=== PATIENT | male | born 1985 | race Caucasian/White ===

== ENCOUNTER 2016-09-05 06:47 | Emergency (ER) | payer SELFPAY ==
[~2016-09-05] VITALS: Ht 165.1 cm; Wt 70.3 kg
--- NOTE | 2016-09-05 06:47 | NUR ---
PT BIB [facility], PREBOOK. TAKEN TO OF
[2016-09-05 06:51] VITALS: BP 143/85
--- NOTE | 2016-09-05 06:56 | NUR ---
PATIENT PRESENTS TO ED WITH PRE BOOK WITH [facility]. . PT DENIES N/V/D; SKIN IS PINK/WARM/DRY; AAOX4 WITH EVEN AND STEADY GAIT; LUNGS CLEAR BL; HR EVEN AND REGULAR; PT DENIES ANY FEVER, CP, SOB, OR COUGH AT THIS TIME; PATIENT STATES PAIN OF 0/10 AT THIS TIME; VSS; PATIENT POSITIONED FOR COMFORT; HOB ELEVATED; BEDRAILS UP X2; BED DOWN. ER MD MADE AWARE OF PT STATUS.
--- NOTE | 2016-09-05 07:03 | NUR ---
Jaret barahona in [facility] - 09/05/16 at [address] Ruano evaluating patient at bedside.
--- NOTE | 2016-09-05 07:03 | NUR ---
Dr. Ruano evaluating patient
[2016-09-05 07:28] VITALS: BP 143/85
--- NOTE | 2016-09-05 07:29 | NUR ---
Patient discharged with v/s stable. Written and verbal after care instructions given and explained. Patient verbalized understanding. Police with in custody. All questions addressed prior to discharge. Advised to follow up with PMD.
== END 2016-09-05 07:29 ==
LOC: MED 06:47
DX: Z02.89 Encounter for other administrative examinations (principal); F10.10 Alcohol abuse, uncomplicated; V43.52XA Car driver injured in collision with other type car in traffic accident, initial encounter; Y93.89 Activity, other specified; Y92.89 Other specified places as the place of occurrence of the external cause; Y99.8 Other external cause status
CPT/HCPCS: 99283